=== PATIENT | female | born 1975 | race African-American/Black ===

== ENCOUNTER 2016-10-18 22:14 | Emergency (ER) ==
[2016-10-18 22:41] VITALS: BP 123/76; TEMP 97.6; BMI 32.8
--- NOTE | 2016-10-18 22:49 | ED.PDOC ---
General ED Provider: Dr. ENRIQUE SANCHEZ Chief Complaint: Sore Throat Stated Complaint: patient is a 41 year old female who comes to the ER with a Sore throat for one week, Bilateral ear pain and cough productive of yellow phlegm and some mild diarrhea Time Seen by Physician: 22:48 Mode of Arrival: Walk-In Information Source: Patient Nursing and Triage Documentation Reviewed and Agree: Yes EENT Complaint Exam - Throat Complaint/Exam Onset/Duration: 1 week Symptoms Are: Still present Initial Severity: Moderate Current Severity: Moderate Aggravating: Reports: Eating Alleviating: Reports: None Associated Signs and Symptoms: Reports: Dysphagia, Cough. Denies: Fever, Drooling, Foreign body sensation, Chills, Wheezing, Hoarseness, Sinus discomfort , Nasal congestion, Difficulty breathing, Lethargy, Irritability, Decreased activity, Vomiting, Diarrhea, Decreased hearing, Ear drainage Uvula Midline: No Jadyn-tonsillar Fluctuence: No Scarlatinaform Rash Present: No Stridor Present: No Sinus Tenderness Present: No Tonsillar Hypertrophy Present: No Tonsillar Exudate Present: No Jadyn-tonsillar Swelling Present: No Adenopathy Present: No Splenomegaly Present: No Review of Systems - Review Of Systems Constitutional: Reports: No symptoms Ears, Nose, Mouth, Throat: Reports: Throat pain Respiratory: Reports: Cough GI: Reports: Diarrhea Skin: Reports: No symptoms Neurological: Reports: No symptoms Endocrine: Reports: No symptoms Hematologic/Lymphatic: Reports: No symptoms All Other Systems: Reviewed and Negative Past Medical History - Past Medical History Endocrine: Reports: None Cardiovascular: Reports: None Respiratory: Reports: Asthma Hematological: Reports: None Gastrointestinal: Reports: None Genitourinary: Reports: None Neuro/Psych: Reports: Anxiety Musculoskeletal: Reports: None Cancer: Reports: None Last Menstrual Period: now Other Pertinent Past Medical History: Heart Murmur, boarderline diabetic - Surgical History General Surgical History: Reports: Orthopedic (right ankle ) - Family History Family History: Reports: None - Social History Smoking Status: Current every day smoker Hx Substance Use: No Alcohol Screening: None - Immunizations Tetanus Shot up to Date: Yes Physical Exam - Physical Exam Appearance: Ill-appearing, Well-nourished Ill-appearing: Mild Pain Distress: Mild Eyes: MARGARET, EOMI, Conjunctiva clear ENT: Ears normal, Nose normal, Oropharynx normal Neck: Supple Respiratory: Airway patent, Breath sounds clear, Breath sounds equal, Respirations nonlabored Cardiovascular: RRR, Pulses normal, No rub, No murmur GI/: Soft, Nontender, No masses, Bowel sounds normal, No Organomegaly Musculoskeletal: Normal strength, ROM intact, No edema, No calf tenderness Skin: Warm, Dry, Normal color Neurological: Sensation intact, Motor intact, Reflexes intact, Cranial nerves intact, Alert, Oriented Psychiatric: Affect appropriate, Mood appropriate Critical Care Note - Critical Care Note Total Time (mins): 0 Course - Course Vital Signs: Temp Pulse Resp BP Pulse Ox 10/18/16 22:32 97.6 F 73 20 123/76 97 Departure - Departure Time of Disposition: 23:12 Disposition: HOME SELF-CARE Discharge Problem: Viral pharyngitis Instructions: Pharyngitis (ED) Condition: Fair Pt referred to PMD for follow-up: Yes Additional Instructions: Push fluids Quit smoking continue Tylenol or Motrin OTC for pain or fever. Prescriptions: Methylprednisolone [Medrol Dosepak] 4 mg PO DIRECTED #1 pkg Allergies/Adverse Reactions: Allergies erythromycin base Adverse Reaction (Verified 10/18/16 22:42) Difficulty Swallowing tongue swelling Home Medications: Ambulatory Orders Escitalopram Oxalate [Lexapro] 10 mg PO DAILY 10/18/16 Methylprednisolone [Medrol Dosepak] 4 mg PO DIRECTED #1 pkg 10/18/16 Disposition Discussed With: Patient
== END 2016-10-18 23:25 | disposition home or self-care (01) ==
LOC: ED 22:14
DX: J02.9 Acute pharyngitis, unspecified (principal); F17.210 Nicotine dependence, cigarettes, uncomplicated
CPT/HCPCS: 87651; 87880; 99283

== ENCOUNTER 2016-10-24 07:19 | Outpatient (CLI) ==
[2016-10-24 07:35] LABS: BASOPHILS % (AUTO) 0.3 % (0.0-3.0); EOSINOPHILS % (AUTO) 0.1 % (0.0-7.0); HEMATOCRIT 33.7 % (37.0-47.0); HEMOGLOBIN 11.2 g/dl (12.0-16.0); IMMATURE GRANULOCYTE % (AUTO) 0.5 % (0.0-5.0); LYMPHOCYTES # (AUTO) 1.4 K/uL (0.60-3.4); LYMPHOCYTES % (AUTO) 14.1 (10.0-50.0); MEAN CORPUSCULAR HEMOGLOBIN 27.7 pg (27.0-31.0); MEAN CORPUSCULAR HGB CONC 33.2 (31.8-35.4); MEAN CORPUSCULAR VOLUME 83.2 fl (81.0-99.0); MONOCYTES # (AUTO) 0.3 K/uL (0.4-2.0); MONOCYTES % (AUTO) 3.3 (0-10); NEUTROPHILS # (AUTO) 8.1 K/ul (2.0-6.9); NEUTROPHILS % (AUTO) 81.7; PLATELET COUNT 342 10^3/uL (140-440); RED BLOOD COUNT 4.05 10^6/ul (4.20-5.40); WHITE BLOOD COUNT 9.91 K/ul (4.6-10.2)
[2016-10-24 08:29] LABS: ALBUMIN 3.5 g/dL (3.4-5.0); ALBUMIN/GLOBULIN RATIO 0.95; ANION GAP 10.3; BILIRUBIN,TOTAL 0.26 mg/dL (0.00-1.20); BUN/CREATININE RATIO 17.8; CALCIUM 8.8 mg/dL (8.2-10.2); CHOL/HDL RATIO 3.5 (4.5-5.5); CREATININE 0.73 mg/dL (0.60-1.30); POTASSIUM 4.3 mmol/L (3.5-5.10); TOTAL PROTEIN 7.2 g/dL (6.4-8.2)
--- NOTE | 2016-10-24 08:34 | DI ---
EXAM: Three views of the cervical spine HISTORY: Scoliosis. COMPARISON: Same day thoracic and lumbar spine x-rays FINDINGS: There is no lytic or blastic lesion of the cervical spine. There is straightening of the cervical spine. The facets and posterior processes are unremarkable. There is no compression fract ure or subluxation. The odontoid process is unremarkable. IMPRESSION: Straightening of the cervical spine may represent positioning versus muscle spasm.
--- NOTE | 2016-10-24 08:35 | DI ---
EXAM: Lumbar spine radiographs. HISTORY: Scoliosis. COMPARISON: None available. TECHNIQUE: 5 views of the lumbar spine. FINDINGS: There is approximately 19 degrees left convex curvature centered near L2. Alignment is n ormal. Vertebral body and intervertebral disc heights are normal. No fracture or subluxation ident ified. Soft tissues are unremarkable. IMPRESSION: Moderate left convex lumbar curvature.
--- NOTE | 2016-10-24 09:00 | DI ---
EXAM: Three views of the thoracic spine HISTORY: Scoliosis. COMPARISON: Same day lumbar spine and cervical spine x-rays FINDINGS: There is mild rightward curvature of the thoracic spine with a blair angle of approximately 24 degrees. The apex of the curvature is noted at T8-T9. There is no acute compression fracture or subluxation with minimal osteophyte formation. IMPRESSION: 1. Mild rightward scoliosis with a new as measured above the apex at T8-T9. 2. No acute compression fracture or subluxation.
== END 2016-10-24 07:20 | disposition home or self-care (01) ==
LOC: RAD 07:19
PROVIDERS: ATTEND Nurse Practitioner Family
DX: M41.9 Scoliosis, unspecified (principal); M54.5 Low back pain; E75.6 Lipid storage disorder, unspecified; K21.0 Gastro-esophageal reflux disease with esophagitis; Z86.39 Personal history of other endocrine, nutritional and metabolic disease
CPT/HCPCS: 36415; 80053; 80061; 83036; 84439; 84443; 85025